=== PATIENT | male | born 1985 | race Caucasian/White ===

== ENCOUNTER 2020-08-05 07:34 | Outpatient (REF) | payer BC, SELFPAY ==
[2020-08-05 08:44] LABS: COVID-19 Test Negative (Negative)
== END 2020-08-05 07:35 | disposition home or self-care (01) ==
LOC: HO.LAB 07:34
PROVIDERS: Visit Provider Internal Medicine
DX: Z20.828 Contact with and (suspected) exposure to other viral communicable diseases (principal)
CPT/HCPCS: 87635; C9803

== ENCOUNTER 2020-09-17 08:51 | Outpatient (REF) | payer BC, SELFPAY ==
[2020-09-17 09:12] LABS: COVID-19 Test Negative (Negative)
== END 2020-09-17 08:52 | disposition home or self-care (01) ==
LOC: HO.LAB 08:51
PROVIDERS: Visit Provider Internal Medicine
DX: Z20.828 Contact with and (suspected) exposure to other viral communicable diseases (principal)
CPT/HCPCS: 36415; 87635; C9803

== ENCOUNTER 2020-09-21 08:39 | Outpatient (REF) | payer BC, SELFPAY ==
[2020-09-21 11:23] LABS: COVID-19 Test Positive (Negative)
== END 2020-09-21 08:40 | disposition home or self-care (01) ==
LOC: HO.LAB 08:39
PROVIDERS: Visit Provider Internal Medicine
DX: Z20.822 Contact with and (suspected) exposure to COVID-19 (principal)
CPT/HCPCS: 36415; 87635; C9803; U0003